=== PATIENT | male | born 2000 | race Caucasian/White ===

== ENCOUNTER 2024-07-12 19:44 | Emergency (ER) | payer SELFPAY ==
[~2024-07-12] VITALS: Ht 185.4 cm; Wt 77.1 kg
[2024-07-12 20:47] VITALS: BP 120/60; TEMP 98.5; O2SAT 98
== END 2024-07-12 20:48 | disposition left against medical advice (07) ==
LOC: ER 19:46
DX: R50.9 Fever, unspecified (principal); Z53.21 Procedure and treatment not carried out due to patient leaving prior to being seen by health care provider